=== PATIENT | male | born 1995 | race Two or more races ===

== ENCOUNTER 2022-03-27 10:29 | Emergency (ER) | payer SELFPAY ==
[~2022-03-27] VITALS: Ht 170.2 cm; Wt 57.0 kg
[2022-03-27 10:46] VITALS: BP 145/103
[2022-03-27] MEDS ORDERED: HYDROcodone-ACET 5/325MG TAB PO ONE (12:00)
[2022-03-27] MEDS ORDERED: AMOX500T86 PO (12:55)
[2022-03-27] MEDS ORDERED: IBUP800T27 PO (12:55)
== END 2022-03-27 13:09 | disposition home or self-care (01) ==
LOC: ER 10:29
DX: S02.40EA Zygomatic fracture, right side, initial encounter for closed fracture (principal); S00.83XA Contusion of other part of head, initial encounter; F17.210 Nicotine dependence, cigarettes, uncomplicated; Y04.8XXA Assault by other bodily force, initial encounter; Y93.89 Activity, other specified; Y92.89 Other specified places as the place of occurrence of the external cause; Y99.8 Other external cause status
CPT/HCPCS: 70486

== ENCOUNTER 2024-09-02 07:21 | Emergency (ER) | payer MEDICAID, OTHER ==
[~2024-09-02] VITALS: Ht 170.2 cm; Wt 56.3 kg
[~2024-09-02 07:21] MED LIST: AMOX500T86 PO; IBUP-1456 PO
[2024-09-02 07:43] LABS: Urine Bacteria None Seen /hpf (None Seen)
[2024-09-02 08:09] LABS: Urine Blood Negative /uL (Negative); Urine Clarity Clear (Clear); Urine Color Yellow (Yellow); Urine Mucus FEW (None Seen); Urine Protein, UAD Negative (Negative); Urine Specific Gravity 1.022 (1.001-1.035); Urine Squamous Epithelial Cell FEW /hpf (<5); Urine Urobilinogen Normal (Negative); Urine WBC <1 /hpf (0 - 3); Urine pH 6.5 (5.0-9.0)
--- NOTE | 2024-09-02 10:16 | ED.PDOC ---
History of Present Illness HPI Comments 29 y/o M presents with c/o abdominal pain and constipation, today. Patient endorses on sudden and unprovoked return of same symptoms, last night, after, initially, having and being evaluated for them at [facility] on 08/31/24. Patient comments on pain being localized in his upper-abdom inal region and worsening whenever in a seated or lying position. He also informs on being Dx with constipation and prescribed medications from aforementioned hospital visits. Patient reports no recent injuries, travel, spoiled food, substance use/exposure, or any additional relevant or pertinent Hx. He denies having any nausea, vomiting, diarrhea, fever, chills, or other associated symptoms or modifiers at this time. Chief Complaint: Abdominal Pain Time Seen by MD: 09:15 Primary Care Provider: LAST Reviewed Notes: Nurses Notes, Medications, Allergies Allergies: Coded Allergies: NO KNOWN ALLERGIES (Unverified , 03/27/22) Home Meds Active Scripts Amoxicillin & Pot Clavulanate (Augmentin) 500 Mg Tab, 500 MG PO BID, #20 TAB Prov:ELDA HART 03/27/22 Ibuprofen (Ibuprofen) 800 Mg Tab, 800 MG PO TID PRN, #30 TAB Prov:ELDA HART 03/27/22 Information Source: Patient Mode of Arrival: Ambulatory Severity: Moderate Timing: Days Duration: Since onset Prehospital treatment: None Past Medical History PAST MEDICAL HISTORY: Denies Surgical History: PTCA Family History Family History: Reviewed,noncontributory to illness Social History Smoker: Non-Smoker Alcohol: Occasionally Drugs: Marijuana Lives In: Home Gastrointestinal: reports: abdominal pain, constipated All Other Systems: Reviewed and Negative (negative unless otherwise stated above or in HPI) Physical Exam General Appearance: Moderate Distress HEENT: Normal ENT Inspection, Pharynx Normal, TMs Normal Neck: Full Range of Motion, Non-Tender, Normal, Normal Inspection Respiratory: Chest Non-Tender, Lungs Clear, No Accessory Muscle Use, No Respiratory Distress, Normal Breath Sounds Cardiovascular: No Edema, No JVD, No Murmur, No Gallop, Normal Peripheral Pulses, Regular Rate/Rhythm Breast Exam: Deferred Gastrointestinal: No Organomegaly, Non Tender, No Pulsatile Mass, Normal Bowel Sounds, Soft Genitalia: Deferred Pelvic: Deferred Rectal: Deferred Extremities: No calf tenderness, Normal capillary refill, Normal inspection, Normal range of motion, Non-tender, No pedal edema Musculoskeletal : Apperance: Normal Neurologic: Alert, regular senior care provider II-XII nml as Tested, No Motor Deficits, Normal Affect, Normal Mood, No Sensory Deficits Cerebellar Function: Normal Reflexes: Normal Skin: Dry, Normal Color, Warm Peripheral Pulses: 3+ Radial (R), 3+ Radial (L) Lymphatic: No Adenopathy Was a procedure done? Was a procedure done?: No Differential Dx Considerations may include: constipation, gastritis, gastroenteritis, PUD, GERD, nephrolithiasis, cholelithiasis, cholecystitis, spoiled food, acute abdomen X-Ray, Labs, Meds, VS Vital Signs Date Time Temp Pulse Resp B/P (MAP) Pulse Ox O2 Delivery O2 Flow Rate FiO2 09/02/24 11:21 67 18 147/66 09/02/24 10:46 78 18 150/84 09/02/24 10:40 78 18 150/84 (106) 100 09/02/24 07:29 98.3 85 16 159/89 (112) 98 Lab Test 09/02/24 10:08 09/02/24 07:30 Range/Units White Blood Count 9.1 4.4-10.8 10^3/uL Red Blood Count 5.04 4.5-5.90 10^6/uL Hemoglobin 16.4 13.5-17.5 g/dL Hematocrit 47.8 41.0-53.0 % Mean Corpuscular Volume 94.7 80.0-100.0 fL Mean Corpuscular Hemoglobin 32.6 H 28.0-32.0 pg Mean Corpuscular Hemoglobin Concent 34.4 32.0-36.0 g/dL Red Cell Distribution Width 12.5 11.8-14.3 % Platelet Count 270 140-450 10^3/uL Mean Platelet Volume 8.5 6.9-10.8 fL Neutrophils (%) (Auto) 82.7 H 37.0-80.0 % Lymphocytes (%) (Auto) 9.7 L 10.0-50.0 % Monocytes (%) (Auto) 7.2 0.0-12.0 % Eosinophils (%) (Auto) 0.1 0.0-7.0 % Basophils (%) (Auto) 0.3 0.0-2.0 % Neutrophils # (Auto) 7.5 1.6-8.6 10 ^3/uL Lymphocytes # (Auto) 0.9 0.4-5.4 10 ^3/uL Monocytes # (Auto) 0.7 0-1.3 10 ^3/uL Eosinophils # (Auto) 0 0-0.8 10 ^3/uL Basophils # (Auto) 0 0-0.2 10 ^3/uL Nucleated Red Blood Cells 0.0 % Sodium Level 138 136-145 mmol/L Potassium Level 3.7 3.5-5.1 mmol/L Chloride Level 103 98-107 mmol/L Carbon Dioxide Level 25 20-31 mmol/L Anion Gap 10 5-15 Blood Urea Nitrogen 9 9-23 mg/dL Creatinine 0.97 0.700-1.30 mg/dL Glomerular Filtration Rate Calc 108 >90 mL/min BUN/Creatinine Ratio 9.3 L 10.0-20.0 Serum Glucose 113 H 74-106 mg/dL Calcium Level 10.2 8.7-10.4 mg/dL Urine Color Yellow Yellow Urine Clarity Clear Clear Urine pH 6.5 5.0-9.0 Urine Specific Gerton 1.022 1.001-1.035 Urine Protein Negative Negative Urine Ketones 4+ H Negative Urine Blood Negative Negative /uL Urine Nitrite Negative Negative Urine Bilirubin Negative Negative Urine Urobilinogen Normal Negative mg/dL Urine Leukocyte Esterase Negative Negative /uL Urine RBC 1 0 - 3 /hpf Urine WBC <1 0 - 3 /hpf Urine Squamous Epithelial Cells Few <5 /hpf Urine Bacteria None seen None Seen /hpf Urine Mucus Few None Seen Urine Glucose Normal Normal mg/dL Urine Opiates Screen Neg NEGATIVE Urine Fentanyl Screen Neg NEGATIVE Urine Barbiturates Screen Neg NEGATIVE Urine Phencyclidine Screen Neg NEGATIVE Urine Amphetamines Screen Neg NEGATIVE Urine Benzodiazepines Screen Neg NEGATIVE Urine Cocaine Screen Neg NEGATIVE Urine Cannabinoids Screen Pos NEGATIVE Current Medications Medications (Trade) Dose Ordered Sig/Aleyda Route Start Time Stop Time Status Last Admin Sodium Chloride 1,000 ml @ 1,000 mls/hr Q1H ONCE IV 09/02/24 10:00 09/02/24 10:59 VT 09/02/24 10:45 Morphine Sulfate 4 mg ONCE ONCE IV 09/02/24 10:00 09/02/24 10:01 DC 09/02/24 10:46 Ondansetron HCl (Zofran) 4 mg ONCE ONCE IV 09/02/24 10:00 09/02/24 10:01 DC 09/02/24 10:45 Patient alert. Complaining of abdominal pain. Vitals stable. Answering all questions. Establish intravenous access. Was given fluids. Was given morphine. Was given Zofran. Patient uses marijuana. Could be from marijuana. Reviewed his previous visit. Has visited few hospitalist prior to coming here. Abdomen is soft nontender. Ambulating. No sign of any sepsis. Explained to the patient. Counseled patient on effects of marijuana for 15 minutes. Was told to follow up with his primary care physician. Was told to come back if there is any problem. Time of 1ST Reevaluation: 09:45 Reevaluation 1ST: Improved Time of 2ND Reevaluation: 12:48 Reevaluation 2ND: Improved Patient Education/Counseling: Diagnosis, Treatment Family Education/Counseling: No Family Present Additional Information I reviewed the following notes from patient's past medical encounters: ED physician documentation 03/27/24 The following tests were ordered, and results were reviewed by me: BMP, CBC, drug screen, UA I discussed treatment and results with medical personnel Departure 1 Departure Time of Disposition: 11:05 Impression: Primary Impression: Non-specific colitis Additional Impression: Marijuana use Disposition: 01 HOME / SELF CARE / HOMELESS Condition: Good Discharged With: Self Critical Care Note Critical Care Time?: No Stability Stability form required: No Heart Score Heart Score: Heart Score Response (Comments) Value History N/A 0 EKG N/A 0 Age N/A 0 Risk Factors N/A 0 Troponin N/A 0 Total 0 I personally scribed for XIAO CALL MD ([email or web address]) on 09/02/24 at 10:16. Electronically submitted by Brian Sommers [email or web address]). XIAO CALL MD Sep 02, 2024 10:16
[2024-09-02 10:31] LABS: Chloride 103 mmol/L (98-107); Potassium 3.7 mmol/L (3.5-5.1); Sodium 138 mmol/L (136-145)
[2024-09-02 10:32] LABS: Anion Gap 10 (5-15); Carbon Dioxide 25 mmol/L (20-31)
[2024-09-02 10:33] LABS: Calcium 10.2 mg/dL (8.7-10.4)
[2024-09-02 10:37] LABS: BUN/Creatinine Ratio 9.3 (10.0-20.0); Basophils # (auto) 0 10 ^3/uL (0-0.2); Basophils % (auto) 0.3 % (0.0-2.0); Eosinophils # (auto) 0 10 ^3/uL (0-0.8); Eosinophils % (auto) 0.1 % (0.0-7.0); Hematocrit 47.8 % (41.0-53.0); Hemoglobin 16.4 g/dL (13.5-17.5); Lymphocytes # (auto) 0.9 10 ^3/uL (0.4-5.4); Lymphocytes % (auto) 9.7 % (10.0-50.0); Mean Corpuscular Hemoglobin 32.6 pg (28.0-32.0); Mean Corpuscular Hgb Conc. 34.4 g/dL (32.0-36.0); Mean Corpuscular Volume 94.7 fL (80.0-100.0); Monocytes # (auto) 0.7 10 ^3/uL (0-1.3); Monocytes % (auto) 7.2 % (0.0-12.0); Neutrophils # (auto) 7.5 10 ^3/uL (1.6-8.6); Neutrophils % (auto) 82.7 % (37.0-80.0); Platelet Count (auto) 270 10^3/uL (140-450); Red Blood Cells 5.04 10^6/uL (4.5-5.90); Red Cell Distribution Width 12.5 % (11.8-14.3); White Blood Cell 9.1 10^3/uL (4.4-10.8)
[2024-09-02] MEDS: ONDANSETRON HCL 4 MG/2 ML VIAL IV ONE (10:45)
[2024-09-02] MEDS: SODIUM CHLORIDE 0.9% 1,000 ML IV ONE (10:45)
[2024-09-02] MEDS: MORPHINE SULFATE 4 MG/ML SYR/VIAL IV ONE (10:46)
[2024-09-02 10:48] LABS: Blood Urea Nitrogen 9 mg/dL (9-23); Glucose 113 mg/dL (74-106)
[2024-09-02 12:08] LABS: Amphetamine Screen, Urine Neg (NEGATIVE); Barbiturate Scree,Urine Neg (NEGATIVE); Benzodiazephine Screen, Urine Neg (NEGATIVE); Cannabinoid Screen, Urine Pos (NEGATIVE); Cocaine Screen, Urine Neg (NEGATIVE); Opiate Scree,Urine Neg (NEGATIVE); Phencyclidine Screen, Urine Neg (NEGATIVE)
[2024-09-02 14:02] VITALS: BP 147/81; PULSE 84; RESP 17; TEMP 97.7; O2SAT 99
[2024-09-03] MEDS ORDERED: MULT-1056 PO (19:55)
== END 2024-09-02 14:13 | disposition home or self-care (01) ==
LOC: ER 07:21
DX: K52.9 Noninfective gastroenteritis and colitis, unspecified (principal); F12.10 Cannabis abuse, uncomplicated; Z79.1 Long term (current) use of non-steroidal anti-inflammatories (NSAID); Z79.2 Long term (current) use of antibiotics
CPT/HCPCS: 36415; 80048; 80307; 81001; 85025; 96361; 96374; 96375; 99284; J2270; J2405; J7030

== ENCOUNTER 2024-09-03 09:05 | Inpatient (IN) | payer MEDICAID ==
[~2024-09-03] VITALS: Ht 170.2 cm; Wt 63.9 kg
[2024-09-03] MEDS: SODIUM CHLORIDE 0.9% 1,000 ML IVB ONE (10:00)
[2024-09-03] MEDS: ONDANSETRON HCL 4 MG/2 ML VIAL IV ONE (10:01)
[2024-09-03] MEDS: MORPHINE SULFATE 4 MG/ML SYR/VIAL IV ONE (10:01)
--- NOTE | 2024-09-03 10:03 | ED.PDOC ---
History of Present Illness HPI Comments 29 y/o M presents with c/o abdominal pain and constipation, today. Patient reports on returning to the ED, due to no improvement or resolution of symptoms he was evaluated for, yesterday. Patient comments on pain being localized in his upper-abdominal region and worsening whenever in a seated or lying position. Patient reports no recent injuries, travel, spoiled food, substance use/exposure, or any additional relevant or pertinent Hx. He denies having any nausea, vomiting, diarrhea, fever, chills, or other associated symptoms or modifiers at this time. Chief Complaint: Abdominal Pain Time Seen by MD: 09:30 Primary Care Provider: LAST Reviewed Notes: Nurses Notes, Medications, Allergies Allergies: Coded Allergies: NO KNOWN ALLERGIES (Unverified , 03/27/22) Home Meds Active Scripts Amoxicillin & Pot Clavulanate (Augmentin) 500 Mg Tab, 500 MG PO BID, #20 TAB Prov:ELDA HART 03/27/22 Ibuprofen (Ibuprofen) 800 Mg Tab, 800 MG PO TID PRN, #30 TAB Prov:ELDA HART 03/27/22 Information Source: Patient Mode of Arrival: Ambulatory Severity: Moderate Timing: Days Duration: Since onset Prehospital treatment: Other (see HPI) Past Medical History PAST MEDICAL HISTORY: Denies Surgical History: PTCA Family History Family History: Reviewed,noncontributory to illness Social History Smoker: Non-Smoker Alcohol: Occasionally Drugs: Marijuana Lives In: Home Gastrointestinal: reports: abdominal pain, constipated All Other Systems: Reviewed and Negative (negative unless otherwise stated above or in HPI) Physical Exam General Appearance: Moderate Distress HEENT: Normal ENT Inspection, Pharynx Normal, TMs Normal Neck: Full Range of Motion, Non-Tender, Normal, Normal Inspection Respiratory: Chest Non-Tender, Lungs Clear, No Accessory Muscle Use, No Respiratory Distress, Normal Breath Sounds Cardiovascular: No Edema, No JVD, No Murmur, No Gallop, Normal Peripheral Pulses, Regular Rate/Rhythm Breast Exam: Deferred Gastrointestinal: No Organomegaly, Non Tender, No Pulsatile Mass, Normal Bowel Sounds, Soft Genitalia: Deferred Pelvic: Deferred Rectal: Deferred Extremities: No calf tenderness, Normal capillary refill, Normal inspection, Normal range of motion, Non-tender, No pedal edema Musculoskeletal : Apperance: Normal Neurologic: Alert, parking lot attendant and cashier II-XII nml as Tested, No Motor Deficits, Normal Affect, Normal Mood, No Sensory Deficits Cerebellar Function: Normal Reflexes: Normal Skin: Dry, Normal Color, Warm Peripheral Pulses: 3+ Radial (R), 3+ Radial (L) Lymphatic: No Adenopathy Was a procedure done? Was a procedure done?: No Differential Dx Considerations may include: constipation, gastritis, gastroenteritis, PUD, GERD, nephrolithiasis, cholelithiasis, cholecystitis, spoiled food, acute abdomen, marijuana abuse X-Ray, Labs, Meds, VS Vital Signs Date Time Temp Pulse Resp B/P (MAP) Pulse Ox O2 Delivery O2 Flow Rate FiO2 09/03/24 10:31 62 18 156/95 09/03/24 10:01 62 18 156/95 09/03/24 09:56 Room Air* 0 21 09/03/24 09:55 98.9 69 17 156/95 (115) 99 98.9 09/03/24 09:20 98.1 77 18 151/85 (107) 100 Lab Test 09/03/24 11:20 Range/Units White Blood Count 14.9 #H 4.4-10.8 10^3/uL Red Blood Count 4.55 4.5-5.90 10^6/uL Hemoglobin 14.7 13.5-17.5 g/dL Hematocrit 43.7 41.0-53.0 % Mean Corpuscular Volume 95.9 80.0-100.0 fL Mean Corpuscular Hemoglobin 32.3 H 28.0-32.0 pg Mean Corpuscular Hemoglobin Concent 33.6 32.0-36.0 g/dL Red Cell Distribution Width 12.1 11.8-14.3 % Platelet Count 249 140-450 10^3/uL Mean Platelet Volume 8.8 6.9-10.8 fL Neutrophils (%) (Auto) 87.5 H 37.0-80.0 % Lymphocytes (%) (Auto) 4.8 L 10.0-50.0 % Monocytes (%) (Auto) 7.6 0.0-12.0 % Eosinophils (%) (Auto) 0.0 0.0-7.0 % Basophils (%) (Auto) 0.1 0.0-2.0 % Neutrophils # (Auto) 13.1 H 1.6-8.6 10 ^3/uL Lymphocytes # (Auto) 0.7 0.4-5.4 10 ^3/uL Monocytes # (Auto) 1.1 0-1.3 10 ^3/uL Eosinophils # (Auto) 0 0-0.8 10 ^3/uL Basophils # (Auto) 0 0-0.2 10 ^3/uL Nucleated Red Blood Cells 0.0 % Prothrombin Time 13.3 H 9.3-11.8 sec Prothrombin Time INR 1.28 H 0.9-1.15 Activated Partial Thromboplast Time 37.1 H 24.5-34.5 SEC Sodium Level 138 136-145 mmol/L Potassium Level 3.9 3.5-5.1 mmol/L Chloride Level 105 98-107 mmol/L Carbon Dioxide Level 21 20-31 mmol/L Anion Gap 12 5-15 Blood Urea Nitrogen 6 L 9-23 mg/dL Creatinine 0.75 0.700-1.30 mg/dL Glomerular Filtration Rate Calc 125 >90 mL/min BUN/Creatinine Ratio 8.0 L 10.0-20.0 Serum Glucose 111 H 74-106 mg/dL Lactic Acid Level 1.6 0.4-2.0 mmol/L Calcium Level 9.0 8.7-10.4 mg/dL Total Bilirubin 0.9 0.2-1.0 mg/dL Aspartate Amino Transferase (AST) 16 13-40 U/L Alanine Aminotransferase (ALT) < 9 7-40 U/L Alkaline Phosphatase 68 46-116 U/L Total Protein 6.8 5.7-8.2 g/dL Albumin 4.4 3.2-4.8 g/dL Current Medications Medications (Trade) Dose Ordered Sig/Aleyda Route Start Time Stop Time Status Last Admin Ondansetron HCl (Zofran) 4 mg ONCE ONCE IV 09/03/24 09:45 09/03/24 09:46 DC 09/03/24 10:01 Sodium Chloride 1,000 ml @ 1,000 mls/hr Q1H ONCE IVB 09/03/24 09:45 09/03/24 10:44 DC 09/03/24 10:00 Morphine Sulfate 4 mg ONCE ONCE IV 09/03/24 09:45 09/03/24 09:46 DC 09/03/24 10:01 Sodium Chloride 1,000 ml @ 1,000 mls/hr Q1H ONCE IV 09/03/24 11:00 09/03/24 11:59 DC 09/03/24 11:03 [place] [id number] Ph: [phone] DIAGNOSTIC IMAGING Diagnostic Imaging Report : [id number] Signed PATIENT: DROA WHITE ACCT: [id number] UNIT: [id number] : 1995 LOC: ER ROOM / BED: / AGE / SEX: 29 / M ADM STATUS: REG ER SERVICE 09 ORDERING PHYSICIAN: XIAO CALL MD PROCEDURE(s): ABPL - CT AB PEL WO CON-NO ORAL OR IV REASON: colitis ORDER NUMBER(s): [id number], ACCESSION NUMBER(s): [id number] Exam: CT CT AB PEL WO CON-NO ORAL OR IV History: colitis Comparison Study: None Technique: Multidetector spiral CT of the abdomen and pelvis was performed from lung bases to pubic symphysis. Imaging was performed without IV contrast. Axial, coronal and sagittal multiplanar reformats were obtained from the axial data set by the technologist. Radiation dose : Abdomen/Pelvis: CTDIvol 5 mGy, DLP 256 mGy*cm. Findings: Evaluation of solid organs is limited due to lack of intravenous contrast use. Lung Bases: No acute or significant lung base finding. Normal heart size. No pleural or pericardial effusion. Liver: The liver is normal in size. No focal lesions. Gallbladder and biliary Tree: Calculus in the gallbladder with associated gallbladder wall thickening. Spleen: Unremarkable Pancreas: The pancreas is grossly normal in appearance. Adrenal Glands: Unremarkable Kidneys: Kidneys are grossly normal without calculi or hydronephrosis. Bladder: Grossly unremarkable for degree of distention. Bowel: The stomach is grossly normal in appearance. Small bowel and colon are normal in caliber and distribution. Normal-appearing appendix with some high density material. Ascites: Absent Lymphadenopathy: No mesenteric, retroperitoneal or periportal lymphadenopathy. Abdominal wall and Mesentery: Fat containing left inguinal hernia. Vasculature: The visualized abdominal aorta is normal in size and caliber. Evaluation of abdominal and pelvic vessels is limited due to lack of intravenous contrast. Pelvic Organs: Unremarkable Musculoskeletal: Chronic compression deformity of T12. IMPRESSION: 1. Cholelithiasis with gallbladder wall thickening. Cholecystitis is not excluded. Clinical correlation and continued follow-up is recommended. Consider further evaluation with right upper quadrant ultrasound or HIDA scan. 2. No definite CT evidence of colitis. If concern persists consider follow-up exam with contrast. 3. Large containing left inguinal hernia. 4. Chronic compression deformity of T12. Radiation optimization: All CT scans at this facility use at least one of these dose optimization techniques: Automated exposure control mA and/or kV adjustment per patient size (includes targeted exams where dose is matched to clinical indication) or iterative reconstruction. HS:Y ATED BY: RUFINO POE MD DICTATED DATE/TIME: 09/03/24 103 SIGNED BY: RUFINO POE MD SIGNED DATE/TIME: 09/03/24 103 CC: Patient alert. Complaining of abdominal pain. Vitals stable. Answering all questions. Establish intravenous access. Was given fluids. Was given morphine. Was given Zofran. Patient uses marijuana. Could be from marijuana. Reviewed his previous visit. Has visited few hospitalist prior to coming here. Abdomen is soft nontender. Ambulating. No sign of any sepsis. Explained to the patient. Counseled patient on effects of marijuana for 15 minutes. Was told to follow up with his primary care physician. Was told to come back if there is any problem. Time of 1ST Reevaluation: 10:00 Reevaluation 1ST: Unchanged Patient Education/Counseling: Diagnosis, Treatment Family Education/Counseling: No Family Present Additional Information I reviewed the following notes from patient's past medical encounters: ER physician documentation on 09/02/24 I discussed treatment and results with medical personnel Departure 1 Departure Time of Disposition: 17:44 Impression: Primary Impression: Acute cholecystitis Additional Impressions: Non-specific colitis Marijuana use Disposition: ADMITTED INPATIENT Admit to: Med Surg Condition: Guarded Critical Care Note Critical Care Time?: Yes (45 min-critical care time only) Stability Stability form required: No Heart Score Heart Score: Heart Score Response (Comments) Value History N/A 0 EKG N/A 0 Age N/A 0 Risk Factors N/A 0 Troponin N/A 0 Total 0 I personally scribed for XIAO CALL MD ([email or web address]) on 09/03/24 at 10:03. Electronically submitted by Brian Sommers ([email or web address]). I personally scribed for XIAO CALL MD ([email or web address]) on 09/03/24 at 11:43. Electronically submitted by Brian Sommers ([email or web address]). XIAO CALL MD Sep 03, 2024 10:03
--- NOTE | 2024-09-03 10:35 | DVH ---
Exam: CT CT AB PEL WO CON-NO ORAL OR IV History: colitis Comparison Study: None Technique: Multidetector spiral CT of the abdomen and pelvis was performed from lung bases to pubic symphysis. Imaging was performed without IV contrast. Axial, coronal and sagittal multiplanar reform ats were obtained from the axial data set by the technologist. Radiation dose : Abdomen/Pelvis: CTDIvol 5 mGy, DLP 256 mGy*cm. Findings: Evaluation of solid organs is limited due to lack of intravenous contrast use. Lung Bases: No acute or significant lung base finding. Normal heart size. No pleural or pericardial effusion. Liver: The liver is normal in size. No focal lesions. Gallbladder and biliary Tree: Calculus in the gallbladder with associated gallbladder wall thickening . Spleen: Unremarkable Pancreas: The pancreas is grossly normal in appearance. Adrenal Glands: Unremarkable Kidneys: Kidneys are grossly normal without calculi or hydronephrosis. Bladder: Grossly unremarkable for degree of distention. Bowel: The stomach is grossly normal in appearance. Small bowel and colon are normal in caliber and d istribution. Normal-appearing appendix with some high density material. Ascites: Absent Lymphadenopathy: No mesenteric, retroperitoneal or periportal lymphadenopathy. Abdominal wall and Mesentery: Fat containing left inguinal hernia. Vasculature: The visualized abdominal aorta is normal in size and caliber. Evaluation of abdominal a nd pelvic vessels is limited due to lack of intravenous contrast. Pelvic Organs: Unremarkable Musculoskeletal: Chronic compression deformity of T12. IMPRESSION: 1. Cholelithiasis with gallbladder wall thickening. Cholecystitis is not excluded. Clinical correla tion and continued follow-up is recommended. Consider further evaluation with right upper quadrant u ltrasound or HIDA scan. 2. No definite CT evidence of colitis. If concern persists consider follow-up exam with contrast. 3. Large containing left inguinal hernia. 4. Chronic compression deformity of T12. Radiation optimization: All CT scans at this facility use at least one of these dose optimization jacinta hniques: Automated exposure control mA and/or kV adjustment per patient size (includes targeted exams where dose is matched to clinical indication) or iterative reconstruction. HS:Y
[2024-09-03] MEDS: SODIUM CHLORIDE 0.9% 1,000 ML IV ONE ×2 (11:01→11:03)
[2024-09-03 11:59] LABS: Basophils # (auto) 0 10 ^3/uL (0-0.2); Basophils % (auto) 0.1 % (0.0-2.0); Eosinophils # (auto) 0 10 ^3/uL (0-0.8); Hematocrit 43.7 % (41.0-53.0); Hemoglobin 14.7 g/dL (13.5-17.5); Lymphocytes # (auto) 0.7 10 ^3/uL (0.4-5.4); Lymphocytes % (auto) 4.8 % (10.0-50.0); Mean Corpuscular Hemoglobin 32.3 pg (28.0-32.0); Mean Corpuscular Hgb Conc. 33.6 g/dL (32.0-36.0); Mean Corpuscular Volume 95.9 fL (80.0-100.0); Monocytes # (auto) 1.1 10 ^3/uL (0-1.3); Monocytes % (auto) 7.6 % (0.0-12.0); Neutrophils # (auto) 13.1 10 ^3/uL (1.6-8.6); Neutrophils % (auto) 87.5 % (37.0-80.0); Platelet Count (auto) 249 10^3/uL (140-450); Red Blood Cells 4.55 10^6/uL (4.5-5.90); Red Cell Distribution Width 12.1 % (11.8-14.3); White Blood Cell 14.9 10^3/uL (4.4-10.8)
[2024-09-03 12:11] LABS: Albumin 4.4 g/dL (3.2-4.8); Alkaline Phosphatase 68 U/L (46-116); Anion Gap 12 (5-15); Aspartate Aminotransferase 16 U/L (13-40); Bilirubin, Total 0.9 mg/dL (0.2-1.0); Carbon Dioxide 21 mmol/L (20-31); Chloride 105 mmol/L (98-107); Potassium 3.9 mmol/L (3.5-5.1); Sodium 138 mmol/L (136-145)
[2024-09-03 12:12] LABS: Total Protein 6.8 g/dL (5.7-8.2)
[2024-09-03 12:14] LABS: Alanine Aminotransferase < 9 U/L (7-40); Blood Urea Nitrogen 6 mg/dL (9-23); Glucose 111 mg/dL (74-106)
--- NOTE | 2024-09-03 13:12 | DVHHP2 ---
History of Present Illness Reason for Visit: Acute cholecystitis History of Present Illness The patient is a 29-year-old male with past medical history of cardiac disease who presented to [facility] ED with complaint of acute abdominal pain. Patient reports symptoms progressively get worse with constipation, local ized upper quadrant abdominal pain, rating pain 10/10 numeric scale, getting worse that prompted this visit. Patient reports on returning to the ED, due to no improvement or resolution of symptoms he was evaluated for, yesterday. Patient was seen and evaluated in the ED, laboratory data shows WBC 14.9, platelets 249, sodium 138, potassium 3.9, BUN 6, creatinine 0.75, GFR 125, gluco se 111, blood pressure 156/95, pulse 62, temperature 98.9 F, O2 saturation 99% on room air. Abdomen/pelvis CT revealing cholelithiasis with gallbladder wall thickening, cholecystitis is not excluded, further evaluation with right upper quadrant ultrasound or HIDA scan recommended. Patient was given IV Dilaudid 2 mg x 1, please see medication orders section in the computer. On my assessment, patient denied chest pain, no headache, no dizziness, no diaphoresis, no shortness of breath, no nausea, no vomiting, fever, no chills. No other modifying factor or other associated signs and symptoms noted. The patient was admitted to the hospital for further evaluation and medical management. Past Medical History Cardiac disease Past Surgical History PTCA Family History Reviewed, noncontributory to the management of this case. Past Social History Patient lives at home, denies smoking, drinks alcohol occasionally, uses marijuana. Review of Systems Constitutional: No: Fever, Chills, Sweats, Weakness, Malaise, Other Eyes: No: Pain, Vision change, Conjunctivae inflammation, Eyelid inflammation, Other, Redness ENT: No: Ear pain, Ear discharge, Nose pain, Nose discharge, Nose congestion, Mouth pain, Mouth swelling, Throat pain, Throat swelling, Other Respiratory: No: Cough, Dry, Shortness of breath, SOB with excertion, Wheezing, Hemoptysis, Pleuritic Pain, Sputum, Wheezing, Other Cardiovascular: No: Chest Pain, Palpitations, Orthopnea, Paroxysmal Noc. Dyspnea, Edema, Lt Headedness, Other Gastrointestinal: Abdominal Pain, Constipation; No: Nausea, Vomiting, Diarrhea, Melena, Hematochezia, Other Genitourinary: No Dysuria, No Frequency, No Incontinence, No Hematuria, No Retention, No Other Musculoskeletal: No: other, neck pain, shoulder pain, arm pain, back pain, hand pain, leg pain, foot pain Skin: No: Rash, Lesions, Jaundice, Bruising, Other Neurological: No: Weakness, Numbness, Incoordination, Change in speech, Confusion, Seizures, Other Allergies: Coded Allergies: NO KNOWN ALLERGIES (Unverified , 03/27/22) Exam Vital Signs Vital Signs Date Time Temp Pulse Resp B/P (MAP) Pulse Ox O2 Delivery O2 Flow Rate FiO2 09/03/24 10:31 62 18 156/95 09/03/24 09:56 Room Air* 0 21 09/03/24 09:55 98.9 99 98.9 General Appearance: Alert, Oriented X3, Cooperative, No acute distress HEENT: Atraumatic, PERRLA, EOMI, Mucous membr. moist/pink Respiratory: Clear to auscultation, Normal air movement Cardiovascular: Regular rate, Normal S1, Normal S2, No murmurs Abdominal: Normal bowel sounds, Soft, No hepatospenomegaly, No masses, Other (Reports tenderness) Extremities: No clubbing, No cyanosis, No edema, Normal pulses, No tenderness/swelling Skin: No rashes, No breakdown, No significant lesion Neuro: Normal gait, Normal speech, Strength at 5/5 X4 ext, Normal tone, Sensation intact, Cranial nerves 3-12 NL, Reflexes 2+ Psych/Mental Status: Mental status NL, Mood NL Labs/Xrays Labs Test 09/03/24 11:20 Range/Units White Blood Count 14.9 #H 4.4-10.8 10^3/uL Red Blood Count 4.55 4.5-5.90 10^6/uL Hemoglobin 14.7 13.5-17.5 g/dL Hematocrit 43.7 41.0-53.0 % Mean Corpuscular Volume 95.9 80.0-100.0 fL Mean Corpuscular Hemoglobin 32.3 H 28.0-32.0 pg Mean Corpuscular Hemoglobin Concent 33.6 32.0-36.0 g/dL Red Cell Distribution Width 12.1 11.8-14.3 % Platelet Count 249 140-450 10^3/uL Mean Platelet Volume 8.8 6.9-10.8 fL Neutrophils (%) (Auto) 87.5 H 37.0-80.0 % Lymphocytes (%) (Auto) 4.8 L 10.0-50.0 % Monocytes (%) (Auto) 7.6 0.0-12.0 % Eosinophils (%) (Auto) 0.0 0.0-7.0 % Basophils (%) (Auto) 0.1 0.0-2.0 % Neutrophils # (Auto) 13.1 H 1.6-8.6 10 ^3/uL Lymphocytes # (Auto) 0.7 0.4-5.4 10 ^3/uL Monocytes # (Auto) 1.1 0-1.3 10 ^3/uL Eosinophils # (Auto) 0 0-0.8 10 ^3/uL Basophils # (Auto) 0 0-0.2 10 ^3/uL Nucleated Red Blood Cells 0.0 % Sodium Level 138 136-145 mmol/L Potassium Level 3.9 3.5-5.1 mmol/L Chloride Level 105 98-107 mmol/L Carbon Dioxide Level 21 20-31 mmol/L Anion Gap 12 5-15 Blood Urea Nitrogen 6 L 9-23 mg/dL Creatinine 0.75 0.700-1.30 mg/dL Glomerular Filtration Rate Calc 125 >90 mL/min BUN/Creatinine Ratio 8.0 L 10.0-20.0 Serum Glucose 111 H 74-106 mg/dL Lactic Acid Level 1.6 0.4-2.0 mmol/L Calcium Level 9.0 8.7-10.4 mg/dL Total Bilirubin 0.9 0.2-1.0 mg/dL Aspartate Amino Transferase (AST) 16 13-40 U/L Alanine Aminotransferase (ALT) < 9 7-40 U/L Alkaline Phosphatase 68 46-116 U/L Total Protein 6.8 5.7-8.2 g/dL Albumin 4.4 3.2-4.8 g/dL PATIENT: GILBERTO MENSAHSERROMULOOACCT: [id number] UNIT: [id number] : 1995 LOC: ER ROOM / BED: / AGE / SEX: 29 / M ADM STATUS: REG ER SERVICE [id number] ORDERING PHYSICIAN: XIAO CALL MD PROCEDURE(s): ABPL - CT AB PEL WO CON-NO ORAL OR IV REASON: colitis ORDER NUMBER(s): [id number], ACCESSION NUMBER(s): [id number] Exam: CT CT AB PEL WO CON-NO ORAL OR IV History: colitis Comparison Study: None Technique: Multidetector spiral CT of the abdomen and pelvis was performed from lung bases to pubic symphysis. Imaging was performed without IV contrast. Axial, coronal and sagittal multiplanar reformats were obtained from the axial data set by the technologist. Radiation dose : Abdomen/Pelvis: CTDIvol 5 mGy, DLP 256 mGy*cm. Findings: Evaluation of solid organs is limited due to lack of intravenous contrast use. Lung Bases: No acute or significant lung base finding. Normal heart size. No pleural or pericardial effusion. Liver: The liver is normal in size. No focal lesions. Gallbladder and biliary Tree: Calculus in the gallbladder with associated gallbladder wall thickening. Spleen: Unremarkable Pancreas: The pancreas is grossly normal in appearance. Adrenal Glands: Unremarkable Kidneys: Kidneys are grossly normal without calculi or hydronephrosis. Bladder: Grossly unremarkable for degree of distention. Bowel: The stomach is grossly normal in appearance. Small bowel and colon are normal in caliber and distribution. Normal-appearing appendix with some high density material. Ascites: Absent Lymphadenopathy: No mesenteric, retroperitoneal or periportal lymphadenopathy. Abdominal wall and Mesentery: Fat containing left inguinal hernia. Vasculature: The visualized abdominal aorta is normal in size and caliber. Evaluation of abdominal and pelvic vessels is limited due to lack of intravenous contrast. Pelvic Organs: Unremarkable Musculoskeletal: Chronic compression deformity of T12. IMPRESSION: 1. Cholelithiasis with gallbladder wall thickening. Cholecystitis is not excluded. Clinical correlation and continued follow-up is recommended. Consider further evaluation with right upper quadrant ultrasound or HIDA scan. 2. No definite CT evidence of colitis. If concern persists consider follow-up exam with contrast. 3. Large containing left inguinal hernia. 4. Chronic compression deformity of T12. Assessment/Plan Assessment/Plan Acute abdominal pain Acute cholecystitis Leukocytosis, unspecified Plan 1. Admit to telemetry unit 2. Breathing treatment 3. Pain control management 4. IV antibiotic management 5. Management of fluids and electrolytes 6. Consultation for surgery 7. Diagnostic test abdomen/pelvis CT 8. DVT prophylaxis-on SCDs 9. Repeat labs CBC, CMP in a.m. 10. Continue with current medical management 11. Treatment plan discussed with patient and RN. Patient verbalized understanding. Plan discussed with: Patient, Other (RN) Problem List: (1) Acute abdominal pain (2) Acute cholecystitis (3) Leukocytosis, unspecified Date of Service: Sep 03, 2024 Billing Provider: LORAINE URIAS DNP Common Visit Codes: 48404-KOCNEVE INP/OBS CARE (HIGH) LORAINE URIAS DNP Sep 03, 2024 13:12
[2024-09-03] MEDS ORDERED: NITROGLYCERIN 0.4 MG SL TAB SL PRN (13:15)
[2024-09-03] MEDS ORDERED: ACETAMINOPHEN 325 MG TAB PO PRN (13:15)
[2024-09-03] MEDS ORDERED: ONDANSETRON HCL 4 MG/2 ML VIAL IV PRN (13:15)
[2024-09-03] MEDS: SODIUM CHLORIDE 0.9% 1,000 ML IV SCH (13:15)
[2024-09-03] MEDS ORDERED: MORPHINE SULFATE INJ 2 MG/ml SYRG IV PRN ×2 (13:15→14:45)
[2024-09-03] MEDS ORDERED: cefTRIAXone 1GM/50ML D5W 50 ML IV ONE (13:15)
[2024-09-03] MEDS ORDERED: DOCUSATE SOD 100 MG CAP PO PRN (13:15)
--- NOTE | 2024-09-03 14:22 | DVHINCON2 ---
Date of service: Sep 03, 2024 History of Present Illness 29-year-old male with a previous history of cardiac stent when he was 15 years old now complaining of one-week history of epigastric abdominal pain that is unrelenting. Patient denies any fevers, chills, nausea or vomiting. Patient was seen in the ER yesterday but was sent home however returned due to persistent abdominal pain. Past Medical History Coronary artery disease status post stent as mentioned Past Surgical History None Family History Noncontributory Social History Smokes marijuana. Denies alcohol or IV drug use Allergies: Coded Allergies: NO KNOWN ALLERGIES (Unverified , 03/27/22) Home Meds Active Scripts Amoxicillin & Pot Clavulanate (Augmentin) 500 Mg Tab, 500 MG PO BID, #20 TAB Prov:ELDA HART 03/27/22 Ibuprofen (Ibuprofen) 800 Mg Tab, 800 MG PO TID PRN, #30 TAB Prov:ELDA HART 03/27/22 Current Medications Current Medications Medications (Trade) Dose Ordered Sig/Aleyda Route PRN Reason Start Time Stop Time Status Last Admin Ceftriaxone Sodium 50 ml @ 100 mls/hr DAILY@09 IV 09/04/24 09:00 Metronidazole 100 ml @ 100 mls/hr Q8HR IV 09/03/24 14:00 Sodium Chloride 1,000 ml @ 60 mls/hr [id number] IV 09/03/24 13:15 Acetaminophen/ Hydrocodone Bitart (Ward 5/325MG Tab) 1 tab Q4HP PRN PO MODERATE PAIN (4-6 PAIN SCALE) 09/03/24 13:15 Ondansetron HCl (Zofran) 4 mg Q4HP PRN IV NAUSEA / VOMITING 09/03/24 13:15 Docusate Sodium (Colace Capsule) 100 mg BIDPRN PRN PO FOR CONSTIPATION 09/03/24 13:15 Acetaminophen (Tylenol Tablet) 650 mg Q6HP PRN PO PAIN SCALE 1-3 OR TEMP>100.4 09/03/24 13:15 Morphine Sulfate 2 mg Q4HPRN PRN IV SEVERE PAIN (7-10 PAIN SCALE) 09/03/24 13:15 Nitroglycerin (Ntrostat Sublingual) 0.4 mg Q5MINP PRN SL FOR CHEST PAIN 09/03/24 13:15 Morphine Sulfate 2 mg Q30M PRN IV FOR CHEST PAIN 09/03/24 13:15 Vital Signs Vital Signs Date Time Temp Pulse Resp B/P (MAP) Pulse Ox O2 Delivery O2 Flow Rate FiO2 09/03/24 10:31 62 18 156/95 09/03/24 09:56 Room Air* 0 21 09/03/24 09:55 98.9 99 98.9 Physical Exam GEN: Age-appropriate male in no acute distress. Alert. HEENT: Normocephalic atraumatic. Moist mucous membranes. Anicteric sclerae. CV: RRR Respiratory: CTAB ABD: Localized right upper quadrant and epigastric tenderness to palpation with guarding. Nondistended. CT of the abdomen and pelvis: Cholelithiasis with gallbladder wall thickening. Labs/Diagnostic Data Labs Test 09/03/24 11:20 Range/Units White Blood Count 14.9 #H 4.4-10.8 10^3/uL Red Blood Count 4.55 4.5-5.90 10^6/uL Hemoglobin 14.7 13.5-17.5 g/dL Hematocrit 43.7 41.0-53.0 % Mean Corpuscular Volume 95.9 80.0-100.0 fL Mean Corpuscular Hemoglobin 32.3 H 28.0-32.0 pg Mean Corpuscular Hemoglobin Concent 33.6 32.0-36.0 g/dL Red Cell Distribution Width 12.1 11.8-14.3 % Platelet Count 249 140-450 10^3/uL Mean Platelet Volume 8.8 6.9-10.8 fL Neutrophils (%) (Auto) 87.5 H 37.0-80.0 % Lymphocytes (%) (Auto) 4.8 L 10.0-50.0 % Monocytes (%) (Auto) 7.6 0.0-12.0 % Eosinophils (%) (Auto) 0.0 0.0-7.0 % Basophils (%) (Auto) 0.1 0.0-2.0 % Neutrophils # (Auto) 13.1 H 1.6-8.6 10 ^3/uL Lymphocytes # (Auto) 0.7 0.4-5.4 10 ^3/uL Monocytes # (Auto) 1.1 0-1.3 10 ^3/uL Eosinophils # (Auto) 0 0-0.8 10 ^3/uL Basophils # (Auto) 0 0-0.2 10 ^3/uL Nucleated Red Blood Cells 0.0 % Sodium Level 138 136-145 mmol/L Potassium Level 3.9 3.5-5.1 mmol/L Chloride Level 105 98-107 mmol/L Carbon Dioxide Level 21 20-31 mmol/L Anion Gap 12 5-15 Blood Urea Nitrogen 6 L 9-23 mg/dL Creatinine 0.75 0.700-1.30 mg/dL Glomerular Filtration Rate Calc 125 >90 mL/min BUN/Creatinine Ratio 8.0 L 10.0-20.0 Serum Glucose 111 H 74-106 mg/dL Lactic Acid Level 1.6 0.4-2.0 mmol/L Calcium Level 9.0 8.7-10.4 mg/dL Total Bilirubin 0.9 0.2-1.0 mg/dL Aspartate Amino Transferase (AST) 16 13-40 U/L Alanine Aminotransferase (ALT) < 9 7-40 U/L Alkaline Phosphatase 68 46-116 U/L Total Protein 6.8 5.7-8.2 g/dL Albumin 4.4 3.2-4.8 g/dL Assessment 1. Acute cholecystitis Plan/Recommendation 1. Laparoscopic cholecystectomy possible open surgery Informed consent: The surgery and its risks including but not limited to infect ion, bleeding requiring possible blood transfusion with the risk of hepatitis or HIV infection, open surgery, possible cystic duct leak or retained common bile duct stone requiring further intervention such as an ERCP, possible perioperative MO or stroke were explained to the patient. All questions were answered to his satisfaction. He expressed verbal understanding and wished to proceed with the surgery. Plan discussed with: Patient LYNN LIAO MD Sep 03, 2024 14:22
[2024-09-03] MEDS ORDERED: fentaNYL CITRATE 100 MCG/2 ML VL ONE (14:27)
[2024-09-03] MEDS ORDERED: MEPERIDINE HCL (25 MG/ML) 1ML VIAL ONE (14:27)
[2024-09-03] MEDS ORDERED: MIDAZOLAM HCL 2MG/2ML 2ml VIAL (1mg/ml) ONE (14:27)
[2024-09-03] MEDS ORDERED: ROCURONIUM 10MG/ML 10ML VIAL IV ONE (14:28)
[2024-09-03] MEDS ORDERED: PROPOFOL 10 MG/ML 20 ML IV ONE (14:28)
[2024-09-03] MEDS ORDERED: LIDOCAINE 2% TOPICAL JELLY 5 ML URJT TOP ONE (14:28)
[2024-09-03] MEDS ORDERED: ONDANSETRON HCL 4 MG/2 ML VIAL ONE (14:28)
[2024-09-03] MEDS ORDERED: LIDOCAINE 1% INJ PF 5ML AMP ONE (14:28)
[2024-09-03] MEDS ORDERED: SODIUM CHLORIDE LOCK 30 ML ONE (14:28)
[2024-09-03] MEDS: ceFAZolin 2 GM/D5W100ml 100 ML IV ONE (14:45)
[2024-09-03] MEDS ORDERED: HYDROmorphone HCL 2 MG/ML VL/or syr IV PRN (14:45)
[2024-09-03] MEDS ORDERED: fentaNYL CITRATE 100 MCG/2 ML VL IV PRN (14:45)
[2024-09-03 14:51] LABS: INR 1.28 (0.9-1.15); Partial Thromboplastin Time 37.1 SEC (24.5-34.5); Prothrombin Time 13.3 sec (9.3-11.8)
[2024-09-03] MEDS ORDERED: SUGAMMADEX 200mg/2ml Vial (100MG/ML) IV ONE (15:10)
[2024-09-03] MEDS ORDERED: GLYCOPYRROLATE 0.2 MG/ML 1ML VIAL ONE (15:47)
[2024-09-03] MEDS ORDERED: NEOSTIGMINE 1 MG/ML INJ (10mg/10ML VIAL) ONE (15:47)
[2024-09-03] MEDS: LIDOCAINE W/ EPINEPHRINE 1% 20ML VIAL ONE (16:05)
--- NOTE | 2024-09-03 16:17 | DVHOP2 ---
Operative Report - 2 Report Details Date: 09/03/24 Preop Diagnosis: 1. Acute cholecystitis Postop Diagnosis: Same Surgeon: Lynn Calderon MD Customer Experience Intern: None Anesthesiologist: Dr. Eller Anesthesia: General, Local Drains: 15 Chilean Arnoldo drain in the right upper quadrant Consent: The surgery and its risks including but not limited to infection, bleeding requiring possible blood transfusion with the risk of hepatitis or HIV infection, possible open surgery, possible cystic duct leak or retained common bile duct stone requiring further intervention such as an ERCP, possible perioperative CT or stroke were explained to the patient. All questions were answered to his satisfaction. He expressed verbal understanding and wished to proceed with the surgery. Complications: None Estimated Blood Loss: 75 mL Fluids: 800 mL Name of Procedure Performed Laparoscopic cholecystectomy Procedure Details Procedure Details: After induction of general anesthesia, patient's abdomen was prepped and draped in standard surgical fashion. A small infraumbilical incision was made and this incision was taken through the abdominal wall down to the fascia which was opened sharply. Peritoneum was then bluntly divided gaining access to the intra-abdominal cavity. Interrupted 0 Vicryl sutures were placed through the fascial incision and using an open technique, Cesar trocar was introduced and secured using the Vicryl sutures. Abdomen was insufflated to 15 mmHg and camera was inserted. Visual examination of the intestine under the fascial incision appeared normal without injury. Under direct visualization, a 5 mm bladeless trocar was placed in the subxiphoid region and two additional 5 mm bladeless trocar was placed in the right upper quadrant all under direct visualization. Examination of the right upper quadrant revealed a very distended and inflamed gallbladder. An endo needle was used to decompress the gallbladder. Gallbladder was then grasped and retracted in a cephalad direction. Infundibulum was retracted laterally and careful blunt dissection was performed to identify the cystic artery which was clipped and divided using Endoclips without complication. The cystic duct was also identified however this appeared slightly enlarged and it was too big to be clipped with the 5 mm Endoclip. The subxiphoid trocar was then removed and this incision was extended to accommodate for a 12 mm bladeless trocar. A large Endoclip was used to clipped and divided the cystic duct without complication. Gallbladder was then removed from the liver bed using electrocautery. There was no bile or stone spillage during the maneuver. Gallbladder was then removed from the abdominal cavity using an endo pouch bag and sent off the surgical field. Abdomen was re-insufflated and hemostasis in the liver bed was achieved using electrocautery. Right upper quadrant was then well irrigated. Jim hemostatic powder was sprayed onto the gallbladder fossa for additional hemostasis and a 15 Chilean Arnoldo drain was placed in the right upper quadrant brought out through the 5 mm lateral trocar site and secured to the skin using 3-0 nylon sutures. Restless trocars were then removed under direct visualization as the abdomen was deflated. Additional interrupted 0 Vicryl sutures were placed through the infraumbilical fascial incision and the sutures were tied down closing off the infraumbilical fascia. Surgical sites were irrigated and injected with 15 mL of 1% lidocaine with epinephrine. The skin incisions were closed using guille. Surgical sites were cleaned and dried and dressings were applied. Sponge, needle, instrument count at the end of the case were reported to be correct by the nursing staff. Patient tolerated procedure well and at the time of dictation, he is being awakened from general anesthesia. Specimen: Gallbladder Condition Stable Disposition at Hospital LYNN CALDERON MD Sep 03, 2024 16:17
[2024-09-03 16:20] VITALS: O2SAT 99
[2024-09-03] MEDS: HYDROmorphone HCL 2 MG/ML VL/or syr IV PRN (16:41)
[2024-09-03 17:39] VITALS: BP 142/79; PULSE 74; RESP 18; TEMP 97.9; O2SAT 95
[2024-09-03 18:18] VITALS: PULSE 80; RESP 16; O2SAT 95
[2024-09-03] MEDS: HYDROmorphone HCL 2 MG/ML VL/or syr ONE (18:29)
[2024-09-03] MEDS: KETOROLAC TROMETH 30 MG/ML 1ML VIAL IV ONE (18:30)
[2024-09-03] MEDS: METOCLOPRAMIDE HCL 5MG/ml INJ 2ml VIAL IV ONE (18:30)
[2024-09-03 19:21] VITALS: BP 142/79; PULSE 74; RESP 18; TEMP 97.9; O2SAT 95
[2024-09-03] MEDS ORDERED: MULT-1056 PO (19:55)
[2024-09-03 20:00] VITALS: PULSE 93
[2024-09-03] MEDS: HYDROcodone-ACET 5/325MG TAB PO PRN (20:12)
[2024-09-03 21:00] VITALS: BP 125/83; PULSE 78; RESP 20; TEMP 97.5; O2SAT 99
[2024-09-03] MEDS: metroNIDAZOLE 500MG/100ML 100 ML IV SCH (22:10)
[2024-09-03] MEDS: MORPHINE SULFATE INJ 2 MG/ml SYRG IV PRN (23:25)
[2024-09-04 01:00] VITALS: BP 121/74; PULSE 78; RESP 20; TEMP 98; O2SAT 99
[2024-09-04 05:00] VITALS: BP 112/63; PULSE 72; RESP 20; TEMP 98; O2SAT 99
[2024-09-04 07:21] LABS: Basophils # (auto) 0 10 ^3/uL (0-0.2); Basophils % (auto) 0.1 % (0.0-2.0); Eosinophils # (auto) 0 10 ^3/uL (0-0.8); Hematocrit 41.1 % (41.0-53.0); Lymphocytes # (auto) 1.4 10 ^3/uL (0.4-5.4); Lymphocytes % (auto) 12.9 % (10.0-50.0); Mean Corpuscular Hemoglobin 32.4 pg (28.0-32.0); Mean Corpuscular Volume 95.2 fL (80.0-100.0); Monocytes # (auto) 1.5 10 ^3/uL (0-1.3); Monocytes % (auto) 13.9 % (0.0-12.0); Neutrophils # (auto) 8.2 10 ^3/uL (1.6-8.6); Neutrophils % (auto) 73.1 % (37.0-80.0); Platelet Count (auto) 233 10^3/uL (140-450); Red Blood Cells 4.32 10^6/uL (4.5-5.90); Red Cell Distribution Width 12.5 % (11.8-14.3); White Blood Cell 11.1 10^3/uL (4.4-10.8)
[2024-09-04 07:28] LABS: Alanine Aminotransferase 22 U/L (7-40); Albumin 4.1 g/dL (3.2-4.8); Alkaline Phosphatase 62 U/L (46-116); Anion Gap 10 (5-15); Aspartate Aminotransferase 20 U/L (13-40); BUN/Creatinine Ratio 10.7 (10.0-20.0); Blood Urea Nitrogen 9 mg/dL (9-23); Calcium 9.6 mg/dL (8.7-10.4); Carbon Dioxide 25 mmol/L (20-31); Chloride 104 mmol/L (98-107); Sodium 139 mmol/L (136-145); Total Protein 6.4 g/dL (5.7-8.2)
[2024-09-04 07:36] LABS: Glucose 116 mg/dL (74-106); Potassium 3.4 mmol/L (3.5-5.1)
[2024-09-04 08:00] VITALS: PULSE 68
[2024-09-04 09:00] VITALS: BP 108/50; PULSE 71; RESP 16; TEMP 98.1; O2SAT 96
--- NOTE | 2024-09-04 09:31 | DVH ---
Procedure: NM NM HIDA SCAN Exam Date: 09/03/2024 11:25 AM Clinical History: johnna Comparison Study: 09/03/24 Nuclear Medicine Hepatobiliary Scan. Technique: Following the intravenous administration of 5 mCi of technetium 99m labeled Choletec multiple planar abdominal planar images were obtained in anterior projection in 1 minute intervals for 60 minutes . Findings: The liver appears grossly normal in size. There is no abnormal persistence of the cardiac or blood po ol activity. There is no visualization of the gallbladder and there is excretion of activity into the small bowel. Impression: No visualization of the gallbladder can be seen with acute cholecystitis.
--- NOTE | 2024-09-04 09:59 | DVHPN2 ---
Progress Note - Dictate Date Seen: Sep 04, 2024 Medical Necessity Reason Pt with a Central, PICC or Fol: No Subjective E: no major events o/n. doing better. geraldine clear liquid diet. vital signs Vital Sign Date Time Temp Pulse Resp B/P (MAP) Pulse Ox O2 Delivery O2 Flow Rate FiO2 09/04/24 09:00 98.1 71 16 108/50 (69) 96 98.1 09/03/24 20:00 Room Air* 0 21 Total Intake and Output 09/03/24 09/03/24 09/04/24 15:00 23:00 07:00 Intake Total 100 ml 1000 ml Output Total 55 ml 25 ml Balance 100 ml -55 ml 975 ml medications Current Medications Medications Dose Ordered Sig/Aleyda Route Start Time Stop Time Status Last Admin Dose Admin Ceftriaxone Sodium 50 ml @ 100 mls/hr DAILY@09 IV 09/04/24 09:00 Metronidazole 100 ml @ 100 mls/hr Q8HR IV 09/03/24 14:00 09/04/24 05:30 100 MLS/HR Sodium Chloride 1,000 ml @ 60 mls/hr [id number] IV 09/03/24 13:15 Acetaminophen/ Hydrocodone Bitart 1 tab Q4HP PRN PO 09/03/24 13:15 09/03/24 20:12 1 TAB Ondansetron HCl 4 mg Q4HP PRN IV 09/03/24 13:15 Docusate Sodium 100 mg BIDPRN PRN PO 09/03/24 13:15 Acetaminophen 650 mg Q6HP PRN PO 09/03/24 13:15 Morphine Sulfate 2 mg Q4HPRN PRN IV 09/03/24 13:15 09/04/24 05:29 2 MG Nitroglycerin 0.4 mg Q5MINP PRN SL 09/03/24 13:15 Morphine Sulfate 2 mg Q30M PRN IV 09/03/24 13:15 objective GEN: NAD ABD: surgical dressings clean and dry. AMAYA 25 mL [facility] laboratory and microbiology Laboratory Tests 09/04/24 05:38 Test 09/04/24 05:38 Range/Units Serum Glucose 116 H 74-106 mg/dL Assessment/Plan A: 1. s/p lap cholecystectomy POD #1 doing well P: 1. stable from surgery POV for DC home with oral abx 2. remove bandages tomorrow. ok to get incisions and drain wet tomorrow 3. f/u in clinic next week. call [phone] for f/u appt. Plan discussed with: Patient LYNN LIAO MD Sep 04, 2024 09:59
[2024-09-04] MEDS: cefTRIAXone 1GM/50ML D5W 50 ML IV SCH (10:06)
--- NOTE | 2024-09-04 11:51 | DVHDS2 ---
Discharge Summary Date of Admission Sep 03, 2024 at 13:08 Date of Discharge: Sep 04, 2024 Labs/Diagnostic Data: Laboratory Results Test 09/04/24 05:38 09/03/24 11:20 White Blood Count 11.1 10^3/uL (4.4-10.8) Red Blood Count 4.32 10^6/uL (4.5-5.90) Hemoglobin 14.0 g/dL (13.5-17.5) Hematocrit 41.1 % (41.0-53.0) Mean Corpuscular Volume 95.2 fL (80.0-100.0) Mean Corpuscular Hemoglobin 32.4 pg (28.0-32.0) Mean Corpuscular Hemoglobin Concent 34.0 g/dL (32.0-36.0) Red Cell Distribution Width 12.5 % (11.8-14.3) Platelet Count 233 10^3/uL (140-450) Mean Platelet Volume 9.1 fL (6.9-10.8) Neutrophils (%) (Auto) 73.1 % (37.0-80.0) Lymphocytes (%) (Auto) 12.9 % (10.0-50.0) Monocytes (%) (Auto) 13.9 % (0.0-12.0) Eosinophils (%) (Auto) 0.0 % (0.0-7.0) Basophils (%) (Auto) 0.1 % (0.0-2.0) Neutrophils # (Auto) 8.2 10 ^3/uL (1.6-8.6) Lymphocytes # (Auto) 1.4 10 ^3/uL (0.4-5.4) Monocytes # (Auto) 1.5 10 ^3/uL (0-1.3) Eosinophils # (Auto) 0 10 ^3/uL (0-0.8) Basophils # (Auto) 0 10 ^3/uL (0-0.2) Nucleated Red Blood Cells 0.0 % Sodium Level 139 mmol/L (136-145) Potassium Level 3.4 mmol/L (3.5-5.1) Chloride Level 104 mmol/L (98-107) Carbon Dioxide Level 25 mmol/L (20-31) Anion Gap 10 (5-15) Blood Urea Nitrogen 9 mg/dL (9-23) Creatinine 0.84 mg/dL (0.700-1.30) Glomerular Filtration Rate Calc 120 mL/min (>90) BUN/Creatinine Ratio 10.7 (10.0-20.0) Serum Glucose 116 mg/dL (74-106) Calcium Level 9.6 mg/dL (8.7-10.4) Total Bilirubin 1.0 mg/dL (0.2-1.0) Aspartate Amino Transferase (AST) 20 U/L (13-40) Alanine Aminotransferase (ALT) 22 U/L (7-40) Alkaline Phosphatase 62 U/L (46-116) Total Protein 6.4 g/dL (5.7-8.2) Albumin 4.1 g/dL (3.2-4.8) Prothrombin Time 13.3 sec (9.3-11.8) Prothrombin Time INR 1.28 (0.9-1.15) Activated Partial Thromboplast Time 37.1 SEC (24.5-34.5) Lactic Acid Level 1.6 mmol/L (0.4-2.0) Other Laboratory Tests 09/04/24 05:38 Brief Hx & Hospital Course: see dictated note Condition at Discharge: Good Final Diagnosis/Problems List lap johnna Discharge Disposition: Home Discharge Instruct/Medications Diet: Regular Activity: No Restrictions, As Tolerated Follow Up/Referral: schedule appt with surgery in 1 wk Medications: script to pharmacy Discharge Statement: "Patient was advised to return to the ER or call 911 if any headaches, dizziness, shortness of breath, chest pain, abdominal pain, bleeding, fevers, or worsening of medical condition. Patient was counseled about treatment plan, medications, possible side effects, patientverbalized understanding. All questions were answered to the best of my ability. This discharge took greater then 30 minutes in planning, reviewing documentation, counseling the patient, and discussing with other team members." ASSESSMENT ASSESSMENT Assessment bushra oropeza Date of Service: Sep 04, 2024 Billing Provider: SAMARA KAUFFMAN MD Common Visit Codes: 72000-FKG/OBS DISCH DAY >30min SAMARA KAUFFMAN MD Sep 04, 2024 11:51
[2024-09-04] MEDS ORDERED: TRAM-626 PO (11:54)
[2024-09-04] MEDS ORDERED: MET500T PO (11:54)
[2024-09-04] MEDS ORDERED: LEVO500T91 PO (11:54)
[2024-09-04] MEDS ORDERED: DOCU-94 PO (11:54)
--- NOTE | 2024-09-04 12:25 | DVHDS ---
DATE OF DISCHARGE: 09/04/2024 HISTORY OF PRESENT ILLNESS: The patient is a 29-year-old gentleman who was admitted with history of acute abdominal pain, mainly in the right upper quadrant and has previous history of stent when he was 13 years old. HOSPITAL COURSE: The patient had a HIDA scan that was positive for acute cholecystitis. The patient had a CT that showed a large left inguinal hernia with chronic compression deformity of T12 as well as gallstones. The patient underwent laparoscopic cholecystectomy on 09/03/2024. The patient currently is doing well and is tolerating oral diet. His white count is improved from 15,000-11,000. The patient will be discharged home to resume his home medications as well as to be on Levaquin 500 mg daily for 7 days, Flagyl 500 mg t.i.d. for 7 days, tramadol p.r.n. for pain and Colace p.r.n. for constipation. He will followup with the surgery clinic in 1 week. FINAL DIAGNOSES: Therefore, * Acute cholecystitis with sepsis, status post laparoscopic cholecystectomy. * Left inguinal hernia. * Compression of T12. * Status post previous cardiac/vascular stent. Time spent in discharge planning and review of plan with the patient and nursing was 38 minutes. MD STEPHANIE Deluca/MARGARETH TID: [id number] RECEIPT: [id number]
[2024-09-04 13:00] VITALS: BP 105/50; PULSE 66; RESP 16; TEMP 97.9; O2SAT 96
[2024-09-04] MEDS: POTASSIUM CHL 20 Meq TABLET PO ONE (14:56)
[2024-09-04 16:00] VITALS: BP 134/65; PULSE 68; RESP 16; TEMP 98; O2SAT 99
== END 2024-09-04 15:31 | disposition home or self-care (01) | DRG 710 ==
LOC: ER 09:05 → TELE 13:08 → TELE-EAST 17:38
PROVIDERS: ADMIT Nurse Practitioner Family; ATTEND Internal Medicine
PROC: 0FT44ZZ Resection of Gallbladder, Percutaneous Endoscopic Approach (ICD-10-PCS; principal; 2024-09-03 14:45)
DX: A41.9 Sepsis, unspecified organism (principal); K80.00 Calculus of gallbladder with acute cholecystitis without obstruction; M48.54XA Collapsed vertebra, not elsewhere classified, thoracic region, initial encounter for fracture; F12.10 Cannabis abuse, uncomplicated; K59.00 Constipation, unspecified; I25.10 Atherosclerotic heart disease of native coronary artery without angina pectoris; K40.90 Unilateral inguinal hernia, without obstruction or gangrene, not specified as recurrent; Z79.1 Long term (current) use of non-steroidal anti-inflammatories (NSAID); Z79.899 Other long term (current) drug therapy; Z95.5 Presence of coronary angioplasty implant and graft
CPT/HCPCS: 36415; 74176; 78226; 80053; 83605; 85025; 85610; 85730; 87040; 87081; 99291; G0378; J2250; J2405; J2704; J3490

== ENCOUNTER 2025-03-12 17:14 | Emergency (ER) | payer MEDICAID ==
[~2025-03-12] VITALS: Ht 170.2 cm; Wt 50.5 kg
[~2025-03-12 17:14] MED LIST changes: +DOCU-94 PO; +LEVO500T91 PO; +MET500T PO; +MULT-1056 PO; +TRAM-626 PO
[2025-03-12 17:28] VITALS: TEMP 98.3
--- NOTE | 2025-03-12 17:53 | ED.PDOC ---
GI ASSESSMENT HPI Comments HPI: Poor Historian. 29-year-old male with a history of left inguinal hernia presents to ED for acute right lower quadrant pain after heavy lifting. He suspects that he has inguinal hernia got worse. He said that he heard something pop. Denies any nausea or vomiting or diarrhea. Pain is constant. No alleviating or precipitating factors. Past Medical History: Inguinal hernia, coronary artery disease Past Surgical History: Cardiac stent, cholecystectomy Vitals: Temperature of 98.3 F, pulse rate of 90, respiratory rate of 18, blood pressure 156/94, and SpO2 of 96% on room air REVIEW OF SYSTEMS: CONSTITUTIONAL: Denies acute: fever, diaphoresis, chills, generalized weakness. HEAD: Denies acute: headache, photophobia Eyes: Denies acute: Double vision, vision loss, eye pain, eye discharge. EARS: Denies acute: tinnitus, hearing loss, ear discharge, ear pain, THROAT: Denies acute: sore throat, swelling, difficulty swallowing , pain with swallowing, change in voice. NECK: Denies acute: neck pain, neck swelling, stiff neck. HEART: Denies acute : chest pain, palpitations, LUNGS: Denies acute: SOB, wheezing, cough, hemoptysis ABDOMEN: Denies acute: Nausea, Vomiting, diarrhea, melena , hematemesis, hematochezia SKIN: Denies acute: rash, redness, lesions, itchiness. EXTREMITIES: Denies acute: calf pain, numbness, tingling, weakness, denies pain in extremity. Denies acute: Low back pain. Neuro: Denies acute: focal neurological deficit, motor or sensory focal neurological deficit, tremors, seizure like activity, confusion, dizziness, change in mental status, loss of bowel or bladder function, cauda equina like symptoms. : Denies acute: dysuria, hematuria, flank pain, increase in urinary frequency. PSYCH: Denies acute: hallucination, suicidal ideation, homicidal ideation. FE PHYSICAL EXAM: General: ----moderate to severe----acute distress, awake and alert. Head: normocephalic, atraumatic. Neck: supple, trachea is midline, no swelling. Throat: Normal phonation. Eyes:, no erythema, no purulent discharge, no proptosis, no icterus. Heart: regular rate, regular rhythm, no significant murmur appreciated. Lungs: no apparent respiratory distress, Able to speak in full sentences. No wheezing, no rhonchi, no crackles. No stridors Clear to auscultation bilaterally. Abdomen: Left lower quadrant tender to palpation, noted left inguinal hernia that is bulging, non distended, soft, no guarding, no rebound, + bowel sounds. Neuro: Awake, Alert, oriented to name, self, situation, follows commands GCS=15. Speech is normal. Skin: no petechia, no purpura, no cyanosis, non-pale, not jaundice. Lower extremities: --no - Pitting edema no deformity, no focal swelling, no calf TTP. Makes eye contact. moves all four extremities. Face: no apparent facial droop. ED COURSE: DISCLAIMER: This medical document was created using an electronic medical record system with voice recognition software and computerized dictation system. Although this document has been carefully reviewed, there might still be some phonetic and typographical errors. Occasional wrong-word or "sound-alike" substitutions may have occurred due to the inherent limitations of voice recognition software. These areas are purely typographical due to imperfections of the software programs and do not reflect any compromise in the patient's medical care. Please read the chart carefully and recognize, using context, where these substitutions have occurred. Chief Complaint: Abdominal Pain Time Seen by MD: 17:16 Primary Care Provider: UNKNOWN Reviewed Notes: Allergies Allergies: Coded Allergies: NO KNOWN ALLERGIES (Unverified , 03/27/22) Home Meds Active Scripts Docusate Sodium (Colace) 100 Mg Cap, 1 CAP PO BID PRN for 15 Days, #40 CAP Prov:SAMARA KAUFFMAN MD 09/04/24 Tramadol HCl (Tramadol HCl) 50 Mg Tab, 50 MG PO TIDP PRN for 6 Days, #18 TAB Prov:SAMARA KAUFFMAN MD 09/04/24 Metronidazole (Metronidazole) 500 Mg Tab, 500 MG PO TID for 7 Days, #21 TAB Prov:SAMARA KAUFFMAN MD 09/04/24 Levofloxacin Hemihydrate (LEVAQUIN 500 MG) 500 Mg Tab, 500 MG PO DAILY for 7 Days, #7 TAB Prov:SAMARA KAUFFMAN MD 09/04/24 Amoxicillin & Pot Clavulanate (Augmentin) 500 Mg Tab, 500 MG PO BID, #20 TAB Prov:ELDA HART 03/27/22 Ibuprofen (Ibuprofen) 800 Mg Tab, 800 MG PO TID PRN, #30 TAB Prov:ELDA HART 03/27/22 Reported Medications Multiple Vitamin (Multivitamin) 1 Tab Tab, 1 TAB PO DAILY 09/03/24 Information Source: Patient Mode of Arrival: Ambulatory Past Medical History PAST MEDICAL HISTORY: Denies Surgical History: PTCA Family History Family History: Reviewed,noncontributory to illness Social History Smoker: Non-Smoker Alcohol: Occasionally Drugs: Marijuana Lives In: Home Was a procedure done? Was a procedure done?: No X-Ray, Labs, Meds, VS Vital Signs Date Time Temp Pulse Resp B/P (MAP) Pulse Ox O2 Delivery O2 Flow Rate FiO2 03/12/25 20:58 56 18 99 Room Air 03/12/25 20:58 56 18 141/93 (109) 99 03/12/25 17:28 98.3 90 18 156/94 (114) 96 98.3 Lab Test 03/12/25 20:19 03/12/25 18:40 03/12/25 18:01 Range/Units Lactic Acid Level 1.4 2.4 *H 0.4-2.0 mmol/L Urine Color Light-yellow Yellow Urine Clarity Clear Clear Urine pH 5.5 5.0-9.0 Urine Specific [place] 1.020 1.001-1.035 Urine Protein Trace H Negative Urine Ketones Negative Negative Urine Blood Negative Negative /uL Urine Nitrite Negative Negative Urine Bilirubin Negative Negative Urine Urobilinogen Normal Negative mg/dL Urine Leukocyte Esterase Negative Negative /uL Urine RBC 1 0 - 3 /hpf Urine Microscopic WBC 1 0-3 /HPF Urine Squamous Epithelial Cells None seen <5 /hpf Urine Bacteria None seen None Seen /hpf Urine Glucose Normal Normal mg/dL White Blood Count 4.1 L 4.4-10.8 10^3/uL Red Blood Count 4.82 4.5-5.90 10^6/uL Hemoglobin 15.8 13.5-17.5 g/dL Hematocrit 45.3 41.0-53.0 % Mean Corpuscular Volume 94.0 80.0-100.0 fL Mean Corpuscular Hemoglobin 32.8 H 28.0-32.0 pg Mean Corpuscular Hemoglobin Concent 34.9 32.0-36.0 g/dL Red Cell Distribution Width 13.2 11.8-14.3 % Platelet Count 209 140-450 10^3/uL Mean Platelet Volume 8.9 6.9-10.8 fL Neutrophils (%) (Auto) 51.8 37.0-80.0 % Lymphocytes (%) (Auto) 35.6 10.0-50.0 % Monocytes (%) (Auto) 11.0 0.0-12.0 % Eosinophils (%) (Auto) 1.0 0.0-7.0 % Basophils (%) (Auto) 0.6 0.0-2.0 % Neutrophils # (Auto) 2.1 1.6-8.6 10 ^3/uL Lymphocytes # (Auto) 1.5 0.4-5.4 10 ^3/uL Monocytes # (Auto) 0.5 0-1.3 10 ^3/uL Eosinophils # (Auto) 0 0-0.8 10 ^3/uL Basophils # (Auto) 0 0-0.2 10 ^3/uL Nucleated Red Blood Cells 0.4 % Sodium Level 142 136-145 mmol/L Potassium Level 3.4 L 3.5-5.1 mmol/L Chloride Level 107 98-107 mmol/L Carbon Dioxide Level 21 20-31 mmol/L Anion Gap 14 5-15 Blood Urea Nitrogen 8 L 9-23 mg/dL Creatinine 0.96 0.700-1.30 mg/dL Glomerular Filtration Rate Calc 109 >90 mL/min BUN/Creatinine Ratio 8.3 L 10.0-20.0 Serum Glucose 127 H 74-106 mg/dL Calcium Level 9.0 8.7-10.4 mg/dL Total Bilirubin 0.9 0.2-1.0 mg/dL Aspartate Amino Transferase (AST) 19 13-40 U/L Alanine Aminotransferase (ALT) 18 7-40 U/L Alkaline Phosphatase 83 46-116 U/L Total Protein 7.2 5.7-8.2 g/dL Albumin 4.8 3.2-4.8 g/dL Lipase 32 12-53 U/L Current Medications Medications (Trade) Dose Ordered Sig/Aleyda Route Start Time Stop Time Status Last Admin Sodium Chloride 1,000 ml @ 1,000 mls/hr Q1H ONCE IV 03/12/25 20:00 03/12/25 20:59 DC 03/12/25 20:00 Ketorolac Tromethamine (Toradol Injection) 30 mg ONCE ONCE IV 03/12/25 20:00 03/12/25 20:33 DC 03/12/25 20:58 [place] [address] Ph: [phone] DIAGNOSTIC IMAGING Diagnostic Imaging Report : [id number] Signed PATIENT: GILBERTO SOMMERSSERGIOACCT: [id number] UNIT: [id number] : 1995 LOC: ER ROOM / BED: / AGE / SEX: 29 / M ADM STATUS: REG ER SERVICE [id number] ORDERING PHYSICIAN: JOVANI PURVIS DO PROCEDURE(s): ABPL - CT AB PEL WO CON-NO ORAL OR IV REASON: abd pain ORDER NUMBER(s): [id number], ACCESSION NUMBER(s): [id number] Exam: CT CT AB PEL WO CON-NO ORAL OR IV History: abd pain Comparison Study: CT CT AB PEL WO CON-NO ORAL OR IV on DOS: 09/03/24 TECHNIQUE: Multidetector CT of the abdomen was performed from lung bases to pubic symphysis. Imaging was performed without IV contrast. Axial, coronal and sagittal multiplanar reformats were obtained from the axial data set by the technologist. Radiation Dose Information: CT Dose: CTDI volume is 5.07 mGy. Dose-length product is 254.65 mGy*cm FINDINGS: Evaluation of solid organs is limited due to lack of intravenous contrast use. Findings: Lung Bases: No acute or significant lung base finding. Normal heart size. No pleural or pericardial effusion. Liver: The liver is normal in size. No focal lesions. Gallbladder and Biliary Tree: gallbladder is surgically removed. Spleen: Unremarkable Pancreas: The pancreas is grossly normal in appearance. Adrenal Glands: Unremarkable Kidneys: Kidneys are grossly normal without calculi or hydronephrosis. Bladder: mild urinary bladder wall thickening which may reflect partial nondistention vs cystitis; consider correlation with urinalysis. Bowel: The stomach is distended with residue. Small bowel and colon are normal in caliber and distribution. The appendix is not visualized; however, no secondary findings of acute appendicitis identified. Ascites: Absent Lymphadenopathy: No mesenteric, retroperitoneal or periportal lymphadenopathy. Abdominal Wall and Mesentery: Unremarkable. Vasculature: The visualized abdominal aorta is normal in size and caliber. Eval uation of abdominal and pelvic vessels is limited due to lack of intravenous contrast. Pelvic Organs: Unremarkable Musculoskeletal: No aggressive focal bony lesions, acute fractures or dislocation. Chronic compression deformity of T12. Soft tissues: moderate left inguinal hernia without bowel involvement. IMPRESSION: Limited evaluation in the absence of IV contrast. mild urinary bladder wall thickening which may reflect partial nondistention vs cystitis; consider correlation with urinalysis. If there is continued concern for intra-abdominal pathology, consider CT with IV contrast for further evaluation. Radiation optimization: All CT scans at this facility use at least one of these dose optimization techniques: automated exposure control mA and/or kV adjustment per patient size (includes targeted exams where dose is matched to clinical indication) or iterative reconstruction. ATED BY: TITO TOLENTINO MD DICTATED DATE/TIME: 03/12/251933 SIGNED BY: TITO TOLENTINO MD SIGNED DATE/TIME: 03/12/251933 CC: Time of 1ST Reevaluation: 17:16 Reevaluation 1ST: Unchanged Patient Education/Counseling: Other (patient is a minor) Family Education/Counseling: Treatment, Need For Follow Up SEPSIS Sepsis Screen Date sepsis recognized/suspect: Mar 12, 2025 Time Sepsis recognized/suspect: 1728 Recent Procedure: No On Antibiotic Therapy: No Respiratory Rate >20: No Heart Rate >90: No Temp<36 C (96.8 F) or >38.3 C: No SBP <90 or MAP <65 mmHG: No New Acute Mental Status Change: No Is the patient on CPAP, BIPAP,: No Physician Orders Ct Ab Pel Wo Con-No Oral Or Iv (03/12/25 17:19) Health Management Consultant (03/12/25 ) Vital Signs Date Time Temp Pulse Resp B/P (MAP) Pulse Ox O2 Delivery O2 Flow Rate FiO2 03/12/25 20:58 56 18 99 Room Air 03/12/25 20:58 56 18 141/93 (109) 99 03/12/25 17:28 98.3 90 18 156/94 (114) 96 98.3 Laboratory Tests Test 03/12/25 18:01 03/12/25 20:19 Lactic Acid Level 2.4 mmol/L (0.4-2.0) *H 1.4 mmol/L (0.4-2.0) White Blood Count 4.1 10^3/uL (4.4-10.8) L Medications Medications Dose Ordered Sig/Aleyda Route Start Time Stop Time Status Last Admin Dose Admin Ketorolac Tromethamine 30 mg ONCE ONCE IV 03/12/25 20:00 03/12/25 20:33 DC 03/12/25 20:58 Sodium Chloride 1,000 ml @ 1,000 mls/hr Q1H ONCE IV 03/12/25 20:00 03/12/25 20:59 DC 03/12/25 20:00 Departure 1 Departure Time of Disposition: 19:56 Impression: Primary Impression: Left inguinal hernia Disposition: HOME / SELF CARE / HOMELESS Condition: Stable Additional Instructions: Additional instructions: You MUST follow-up with your primary care/family doctor in 1 to 2 days. If you are unable to see your primary care/family doctor, please return to our emergency room for re-assessment and re-evaluation in 1 to 2 days. Return to the emergency room here in our facility or to the nearest ER [facility] if your symptoms change or worsen. CONSULTATIONS: you MUST Follow-up for consultation as soon as possible with: -general surgery in 1-2 days. Please call for appointment. You MUST call the consultants office yourself to make an appointment. You may need to arrange that through your insurance and/or your primary/family doctor. If you are unable to see the telesales consultant in 1 to 2 days, you must return to our emergency room (or any other ER of your choice) for re-assessment and re- evaluation. Adequate fluid hydration. No heavy lifting. Below is a copy of your radiological report for follow up: [address] [address] Ph: [phone] DIAGNOSTIC IMAGING Diagnostic Imaging Report : [id number] Signed PATIENT: REJI WHITEGIO ACCT: [id number] UNIT: [id number] : 1995 LOC: ER ROOM / BED: / AGE / SEX: 29 / M ADM STATUS: REG ER SERVICE [id number] ORDERING PHYSICIAN: JOVANI PURVIS DO PROCEDURE(s): ABPL - CT AB PEL WO CON-NO ORAL OR IV REASON: abd pain ORDER NUMBER(s): [id number], ACCESSION NUMBER(s): [id number] Exam: CT CT AB PEL WO CON-NO ORAL OR IV History: abd pain Comparison Study: CT CT AB PEL WO CON-NO ORAL OR IV on DOS: 09/03/24 TECHNIQUE: Multidetector CT of the abdomen was performed from lung bases to pubic symphysis. Imaging was performed without IV contrast. Axial, coronal and sagittal multiplanar reformats were obtained from the axial data set by the technologist. Radiation Dose Information: CT Dose: CTDI volume is 5.07 mGy. Dose-length product is 254.65 mGy*cm FINDINGS: Evaluation of solid organs is limited due to lack of intravenous contrast use. Findings: Lung Bases: No acute or significant lung base finding. Normal heart size. No pleural or pericardial effusion. Liver: The liver is normal in size. No focal lesions. Gallbladder and Biliary Tree: gallbladder is surgically removed. Spleen: Unremarkable Pancreas: The pancreas is grossly normal in appearance. Adrenal Glands: Unremarkable Kidneys: Kidneys are grossly normal without calculi or hydronephrosis. Bladder: mild urinary bladder wall thickening which may reflect partial nondistention vs cystitis; consider correlation with urinalysis. Bowel: The stomach is distended with residue. Small bowel and colon are normal in caliber and distribution. The appendix is not visualized; however, no secondary findings of acute appendicitis identified. Ascites: Absent Lymphadenopathy: No mesenteric, retroperitoneal or periportal lymphadenopathy. Abdominal Wall and Mesentery: Unremarkable. Vasculature: The visualized abdominal aorta is normal in size and caliber. Evaluation of abdominal and pelvic vessels is limited due to lack of intravenous contrast. Pelvic Organs: Unremarkable Musculoskeletal: No aggressive focal bony lesions, acute fractures or disl ocation. Chronic compression deformity of T12. Soft tissues: moderate left inguinal hernia without bowel involvement. IMPRESSION: Limited evaluation in the absence of IV contrast. mild urinary bladder wall thickening which may reflect partial nondistention vs cystitis; consider correlation with urinalysis. If there is continued concern for intra-abdominal pathology, consider CT with IV contrast for further evaluation. Radiation optimization: All CT scans at this facility use at least one of these dose optimization techniques: automated exposure control mA and/or kV adjustment per patient size (includes targeted exams where dose is matched to clinical indication) or iterative reconstruction. ATED BY: TITO TOLENTINO MD DICTATED DATE/TIME: 03/12/251933 SIGNED BY: TITO TOLENTINO MD SIGNED DATE/TIME: 03/12/251933 CC: Discharged With: Self, Spouse Critical Care Note Critical Care Time?: No I personally scribed for JOVANI PURVIS DO ([email or web address]) on 03/13/25 at 01:23. Electronically submitted by Brian Sommers ([email or web address]). JOVANI PURVIS DO Mar 12, 2025 17:53
[2025-03-12 18:47] LABS: Alanine Aminotransferase 18 U/L (7-40); Albumin 4.8 g/dL (3.2-4.8); Alkaline Phosphatase 83 U/L (46-116); Anion Gap 14 (5-15); BUN/Creatinine Ratio 8.3 (10.0-20.0); Bilirubin, Total 0.9 mg/dL (0.2-1.0); Calcium 9.0 mg/dL (8.7-10.4); Carbon Dioxide 21 mmol/L (20-31); Hematocrit 45.3 % (41.0-53.0); Hemoglobin 15.8 g/dL (13.5-17.5); Lipase 32 U/L (12-53); Mean Corpuscular Hemoglobin 32.8 pg (28.0-32.0); Mean Corpuscular Volume 94.0 fL (80.0-100.0); Nucleated Red Blood Cells % 0.4 %; Sodium 142 mmol/L (136-145); Total Protein 7.2 g/dL (5.7-8.2)
[2025-03-12 19:01] LABS: Urine Protein, UAD TRACE (Negative)
[2025-03-12 19:36] LABS: Blood Urea Nitrogen 8 mg/dL (9-23); Chloride 107 mmol/L (98-107); Glucose 127 mg/dL (74-106); Potassium 3.4 mmol/L (3.5-5.1)
--- NOTE | 2025-03-12 19:36 | DVH ---
Exam: CT CT AB PEL WO CON-NO ORAL OR IV History: abd pain Comparison Study: CT CT AB PEL WO CON-NO ORAL OR IV on DOS: 09/03/24 TECHNIQUE: Multidetector CT of the abdomen was performed from lung bases to pubic symphysis. Imaging was performed without IV contrast. Axial, coronal and sagittal multiplanar reformats were obtained fr om the axial data set by the technologist. Radiation Dose Information: CT Dose: CTDI volume is 5.07 mGy. Dose-length product is 254.65 mGy*cm FINDINGS: Evaluation of solid organs is limited due to lack of intravenous contrast use. Findings: Lung Bases: No acute or significant lung base finding. Normal heart size. No pleural or pericardial effusion. Liver: The liver is normal in size. No focal lesions. Gallbladder and Biliary Tree: gallbladder is surgically removed. Spleen: Unremarkable Pancreas: The pancreas is grossly normal in appearance. Adrenal Glands: Unremarkable Kidneys: Kidneys are grossly normal without calculi or hydronephrosis. Bladder: mild urinary bladder wall thickening which may reflect partial nondistention vs cystitis; co nsider correlation with urinalysis. Bowel: The stomach is distended with residue. Small bowel and colon are normal in caliber and distrib ution. The appendix is not visualized; however, no secondary findings of acute appendicitis identifi ed. Ascites: Absent Lymphadenopathy: No mesenteric, retroperitoneal or periportal lymphadenopathy. Abdominal Wall and Mesentery: Unremarkable. Vasculature: The visualized abdominal aorta is normal in size and caliber. Evaluation of abdominal a nd pelvic vessels is limited due to lack of intravenous contrast. Pelvic Organs: Unremarkable Musculoskeletal: No aggressive focal bony lesions, acute fractures or dislocation. Chronic compressio n deformity of T12. Soft tissues: moderate left inguinal hernia without bowel involvement. IMPRESSION: Limited evaluation in the absence of IV contrast. mild urinary bladder wall thickening which may refl ect partial nondistention vs cystitis; consider correlation with urinalysis. If there is continued co ncern for intra-abdominal pathology, consider CT with IV contrast for further evaluation. Radiation optimization: All CT scans at this facility use at least one of these dose optimization jacinta hniques: automated exposure control mA and/or kV adjustment per patient size (includes targeted exam s where dose is matched to clinical indication) or iterative reconstruction.
[2025-03-12 19:52] LABS: Lactic Acid w/Reflex 2.4 mmol/L (0.4-2.0)
[2025-03-12] MEDS: SODIUM CHLORIDE 0.9% 1,000 ML IV ONE (20:00)
[2025-03-12 20:58] VITALS: BP 141/93; PULSE 56; RESP 18; O2SAT 99
[2025-03-12] MEDS: KETOROLAC TROMETH 30 MG/ML 1ML VIAL IV ONE (20:58)
== END 2025-03-12 21:37 | disposition home or self-care (01) ==
LOC: ER 17:14
DX: K40.90 Unilateral inguinal hernia, without obstruction or gangrene, not specified as recurrent (principal); F10.90 Alcohol use, unspecified, uncomplicated; F12.90 Cannabis use, unspecified, uncomplicated; I25.10 Atherosclerotic heart disease of native coronary artery without angina pectoris; Z90.49 Acquired absence of other specified parts of digestive tract; Z95.5 Presence of coronary angioplasty implant and graft; Z79.899 Other long term (current) drug therapy; Y90.9 Presence of alcohol in blood, level not specified
CPT/HCPCS: 36415; 74176; 80053; 81001; 83605; 83690; 85025; 96361; 96374; 99285; J1885; J7030